=== PATIENT | female | born 1975 | race Caucasian/White ===

== ENCOUNTER 2018-07-19 07:00 | Inpatient (IN) | payer OTHER ==
[~2018-07-19] VITALS: Ht 160 cm; Wt 97.5 kg
[2018-07-19] MEDS ORDERED: LOSARTAN-HCTZ1 EAC1 PO (08:36)
== END 2018-07-27 18:38 | DRG 470 ==
LOC: SURH 07-25 06:30 → O/R 07-25 06:30 → SURH 07-25 07:00
PROVIDERS: ADMIT Orthopaedic Surgery
PROC: 0SRC0J9 Replacement of Right Knee Joint with Synthetic Substitute, Cemented, Open Approach (ICD-10-PCS; principal; 2018-07-25 07:00)
DX: M17.11 Unilateral primary osteoarthritis, right knee (principal); D62 Acute posthemorrhagic anemia; I10 Essential (primary) hypertension

== ENCOUNTER 2022-03-10 09:15 | Inpatient (IN) | payer OTHER ==
[~2022-03-10] VITALS: Ht 167.6 cm; Wt 98.4 kg
[~2022-03-10 09:15] MED LIST: LOSARTAN-HCTZ1 EAC1 PO
== END 2022-03-18 22:50 | disposition home or self-care (01) | DRG 470 ==
LOC: O/R 03-16 06:22 → SURH 03-16 09:15
PROVIDERS: ADMIT Orthopaedic Surgery; ATTEND Orthopaedic Surgery
PROC: 0SRD0J9 Replacement of Left Knee Joint with Synthetic Substitute, Cemented, Open Approach (ICD-10-PCS; principal; 2022-03-16 10:30)
DX: M17.12 Unilateral primary osteoarthritis, left knee (principal); D62 Acute posthemorrhagic anemia; I10 Essential (primary) hypertension; Z96.652 Presence of left artificial knee joint; Z20.822 Contact with and (suspected) exposure to COVID-19

== ENCOUNTER 2022-06-23 09:19 | Outpatient (CLI) | payer OTHER | END 2022-06-23 09:29 | disposition home or self-care (01) | LOC: RAD 09:19 | PROVIDERS: ATTEND Orthopaedic Surgery | DX: M25.561 Pain in right knee (principal); M25.562 Pain in left knee ==

== ENCOUNTER 2025-01-18 10:02 | Outpatient (CLI) | payer OTHER | END 2025-01-18 10:14 | disposition home or self-care (01) | LOC: RAD 10:02 | DX: M25.561 Pain in right knee (principal) ==